=== PATIENT | male | born 1985 | race Caucasian/White ===

== ENCOUNTER 2023-12-27 20:55 | Emergency (ER) | payer OTHER ==
[~2023-12-27] VITALS: Ht 182.9 cm; Wt 80.0 kg
[2023-12-27 20:56] VITALS: TEMP 98.5
[2023-12-27 21:56] LABS: BASOPHILS % 0.5 % (0.0-2.0); CHLORIDE 103 mEq/L (98-107); EOSINOPHILS % 0.1 % (0.0-5.0); HEMATOCRIT. 45.6 % (42.0-52.0); HEMOGLOBIN. 15.6 g/dL (14.0-18.0); LYMPHOCYTES % 9.8 % (20.0-50.0); MEAN CORPUSCULAR HGB CONC 34.1 g/dL (31.0-37.0); MEAN CORPUSCULAR VOLUME 87.8 fL (80.0-94.0); MEAN PLATELET VOLUME 8.6 fl (7.4-10.4); MONOCYTES % 5.3 % (2.0-8.0); NEUTROPHILS % 84.3 % (40.0-76.0); PLATELET 212 x1000/uL (130-400); POTASSIUM 3.5 mEq/L (3.5-5.1); RED BLOOD CELL COUNT 5.19 mill/uL (4.7-6.1); RED CELL DISTRIBUTION WIDTH 12.7 % (11.6-14.6); SODIUM 136 mEq/L (136-145); WHITE BLOOD COUNT 12.2 x1000/uL (4.5-11.0)
[2023-12-27 21:57] LABS: CALCIUM 9.8 mg/dL (8.7-10.4); CARBON DIOXIDE 24 mEq/L (21-32)
[2023-12-27 22:02] LABS: CREATININE 1.1 mg/dL (0.6-1.3); GLUCOSE 156 mg/dL (70-105); UREA NITROGEN BLOOD 6 mg/dL (9-23)
[2023-12-27] MEDS: ALBUTEROL (0.083%) 2.5MG/3ML NEB HHN NR (22:38)
[2023-12-27] MEDS ORDERED: METHYLPREDNISOLONE SOD SUCC 125MG/2ML (ACT-O-VIAL) IV NR (22:38)
[2023-12-28] MEDS: METHYLPREDNISOLONE SOD SUCC 125MG/2ML (ACT-O-VIAL) IV NR (00:14)
[2023-12-28] MEDS: PREDNISONE 20MG TABLET PO ONE (00:17)
[2023-12-28] MEDS: IPRATROPIUM BROMIDE (0.02%) 0.5MG/2.5ML NEB HHN NR (00:21)
[2023-12-28 00:23] VITALS: PULSE 99; RESP 20; O2SAT 97
[2023-12-28] MEDS ORDERED: ALBU6.7H15 INH (00:29)
[2023-12-28] MEDS ORDERED: P20 MT (00:29)
[2023-12-28 00:34] VITALS: BP 134/88; PULSE 109; RESP 18
== END 2023-12-28 02:20 | disposition home or self-care (01) ==
LOC: ER 20:55
DX: J45.901 Unspecified asthma with (acute) exacerbation (principal); I10 Essential (primary) hypertension; F41.9 Anxiety disorder, unspecified; Z00.00 Encounter for general adult medical examination without abnormal findings
CPT/HCPCS: 80048; 85025; 85379; 36415; 71045; 93005; 99285; 94644; Z7610 ×3; J7512